=== PATIENT | female | born 1965 ===

== ENCOUNTER 2022-05-22 07:37 | Outpatient (CLI) | payer OTHER | END 2022-05-22 08:00 | disposition home or self-care (01) | LOC: RX STUDY 07:37 | PROVIDERS: ATTEND Colon & Rectal Surgery | DX: K59.01 Slow transit constipation (principal) ==

== ENCOUNTER 2022-09-04 15:14 | Outpatient (CLI) | payer OTHER | END 2022-09-04 15:31 | disposition home or self-care (01) | LOC: RAD 15:14 | DX: K59.01 Slow transit constipation (principal) ==